=== PATIENT | female | born 1970 | race Caucasian/White ===

== ENCOUNTER → 2018-04-14 | Outpatient (CLI) | payer BC ==
--- NOTE | 2018-04-14 15:21 | US ---
EXAMINATION TYPE: US thyroid st tissue head/neck DATE OF EXAM: 04/14/2018 COMPARISON: NONE CLINICAL HISTORY: E04.9 nontoxic goiter. Pt states Dr felt possible nodule on physical examination GLAND SIZE: Right Lobe: 5.3 x 1.4 x 1.4 cm Overall Parenchyma: homogenous Left Lobe: 4.1 x 1.0 x 1.4 cm Overall Parenchyma: homogeneous Isthmus Thickness: 0.3 cm Thyroid gland is normal in size and homogeneous in echotexture without discrete nodule. Benign subcen timeter lymph nodes incidentally marked in the adjacent right neck. IMPRESSION: Unremarkable study.
--- NOTE | 2018-04-15 07:51 | MM ---
Reason for exam: screening (asymptomatic). Baseline mammogram. History: Took hormonal contraceptives beginning at age 17. Physical Findings: Nurse did not find any significant physical abnormalities on exam. MG Screening Mammo w CAD Bilateral CC and MLO view(s) were taken. The breast tissue is heterogeneously dense. This may lower the sensitivity of mammography. There is no discrete abnormality. These results were verbally communicated with the patient and result sheet given to the patient on 04/14/18. ASSESSMENT: Negative, BI-RAD 1 RECOMMENDATION: Routine screening mammogram of both breasts in 1 year.
== END | disposition home or self-care (01) ==
LOC: RADMAMWWP 14:06
PROVIDERS: ATTEND Physician Assistant
DX: Z12.31 Encounter for screening mammogram for malignant neoplasm of breast (principal); E04.9 Nontoxic goiter, unspecified
CPT/HCPCS: 76536; 77067

== ENCOUNTER → 2022-10-25 | Outpatient (CLI) | payer BC ==
[2022-10-25 22:55] LABS: Basophils # (A) 0.07 X 10*3/uL (0.00-0.10); Eosinophils # (A) 0.25 X 10*3/uL (0.04-0.35); Eosinophils % (A) 3.7 %; HCT 41.9 % (37.2-46.3); HGB 13.7 d/dL (12.0-15.0); Immature Grans, Automated 0 %; Lymphocytes # (A) 3.17 X 10*3/uL (0.90-5.00); Lymphocytes % (A) 46.4 %; MCH 30.8 pg (27.0-32.0); MCHC 32.7 d/dL (32.0-37.0); MCV 94.2 FL (80.0-97.0); Mean Platelet Volume 10.2 FL (9.5-12.2); Monocytes # (A) 0.81 X 10*3/uL (0.20-1.00); Monocytes % (A) 11.9 %; NRBC Per 100 WBC 0 X 10*3/uL (0.00-0.01); Neutrophils # (A) 2.53 X 10*3/uL (1.80-7.70); Platelet Count 424 X 10*3/uL (140-440); RBC 4.45 X 10*6/uL (4.10-5.20); RDW 13.4 % (11.5-14.5); WBC 6.83 X 10*3/uL (4.50-10.00)
[2022-10-25 23:32] LABS: ALT 18 U/L (8-44); AST 19 U/L (13-35); Albumin 4.7 d/dL (3.8-4.9); Albumin/Globulin Ratio 1.88 Ratio (1.60-3.17); Alkaline Phosphatase 76 U/L (41-126); BUN/Creat Ratio 12.88 Ratio (12.00-20.00); Blood Urea Nitrogen 10.3 mg/dL (9.0-27.0); Calcium 10.6 mg/dL (8.7-10.3); Carbon Dioxide 24.8 mmol/L (21.6-31.8); Chloride 105 mmol/L (96-109); Estradiol 35.1 pg/mL; Globulin 2.5 d/dL (1.6-3.3); Glucose 90 mg/dL (70-110); LDL Cholesterol,Calculated 96.4 mg/dL (0.0-131.0); Potassium 5.4 mmol/L (3.5-5.5); Sodium 142 mmol/L (135-145); Total Bilirubin 0.4 mg/dL (0.3-1.2); Total Protein 7.2 d/dL (6.2-8.2); VLDL Calculation 13.74 mg/dL (5.00-40.00)
== END | disposition home or self-care (01) ==
LOC: LABWHC1 10:18
PROVIDERS: ATTEND Obstetrics & Gynecology
DX: Z00.00 Encounter for general adult medical examination without abnormal findings (principal); E55.9 Vitamin D deficiency, unspecified; Z78.0 Asymptomatic menopausal state; R53.83 Other fatigue
CPT/HCPCS: 36415; 80053; 80061; 82040; 82306; 82607; 82670; 84144; 84270; 84403; 84439; 84443; 85025